=== PATIENT | male | born 1980 | race Caucasian/White ===

== ENCOUNTER 2016-06-26 23:28 | Emergency (ER) | payer MEDICARE | END 2016-06-27 08:08 | disposition other institution (70) | LOC: ER 23:28 | DX: T43.692A Poisoning by other psychostimulants, intentional self-harm, initial encounter (principal); N17.9 Acute kidney failure, unspecified; M62.82 Rhabdomyolysis; S01.81XA Laceration without foreign body of other part of head, initial encounter; F17.210 Nicotine dependence, cigarettes, uncomplicated; W22.8XXA Striking against or struck by other objects, initial encounter | CPT/HCPCS: 36415; 51702; 80307; 96365; 96366; 96367; 96368; 96375; 96376; G0480; J0330; J2704 ==